=== PATIENT | male | born 1960 | race Caucasian/White ===

== ENCOUNTER 2016-11-03 09:22 | Day surgery (SDC) | payer BC ==
[2016-11-03] VITALS (450 sets, daily range): BP systolic 150–184; BP diastolic 80–127; PULSE 55–72; TEMP 96.7–98.5; O2SAT 93–100
[~2016-11-03] VITALS: Ht 180.3 cm; Wt 109.0 kg
[~2016-11-03 09:22] MED LIST: PRINIVIL10 MG PO
[2016-11-03 10:36] LABS: HEMATOCRIT 38.6 % (42.0-52.0); HEMOGLOBIN 13.3 g/dl (13.5-18.0); MEAN CELL VOLUME 88 fl (80.0-100.0); MEAN CORPUSCULAR HEMOGLOBIN 30 pg (27.0-31.0); MEAN CORPUSCULAR HGB CONC 35 g/dl (33.0-37.0); MEAN PLATELET VOLUME 10.4 fl (7.4-10.4); PLATELET COUNT 224 K/mm3 (130-400); REDCELL DISTRIBUTION WIDTH-CV 13.2 % (11.5-14.5); WHITE BLOOD COUNT 7.6 K/mm3 (4.8-10.8)
[2016-11-03] MEDS ORDERED: LOPRESSOR 550 MG/TAB PO (10:36)
[2016-11-03 10:37] LABS: PROTHROMBIN TIME 11.5 SECONDS (9.7-12.8)
[2016-11-03] MEDS ORDERED: LIPITOR20 MG PO (10:37)
[2016-11-03] MEDS ORDERED: ASPIRIN E.C. 8181 MG PO (10:37)
[2016-11-03] MEDS ORDERED: GLUCOPHAGE1000 MG PO (10:37)
[2016-11-03] MEDS ORDERED: TYLENOL 500MG500 MG PO (10:40)
[2016-11-03] MEDS ORDERED: [UNRECOGNIZED DRUG - REMARK] PO (10:46)
[2016-11-03 10:47] LABS: CALCIUM 8.6 mg/dL (8.4-10.2); CREATININE, serum 0.62 mg/dL (0.66-1.25); POTASSIUM 3.9 mmol/L (3.4-5.0)
[2016-11-04] VITALS (28 sets, daily range): BP systolic 130–148; BP diastolic 56–85; PULSE 68–73; TEMP 98–98.7; O2SAT 96–100
[2016-11-04 06:45] LABS: BASO % 0.2 % (0.0-2.0); EOS % 0.2 % (0-4.0); GRAN # 10.3 (1.4-6.5); GRAN % 83.2 % (42.2-75.2); HEMATOCRIT 37.6 % (42.0-52.0); LYMPH # 1.5 (1.2-3.4); LYMPH % 12.2 % (20.0-51.0); MEAN CELL VOLUME 89 fl (80.0-100.0); MEAN CORPUSCULAR HEMOGLOBIN 31 pg (27.0-31.0); MEAN CORPUSCULAR HGB CONC 35 g/dl (33.0-37.0); MEAN PLATELET VOLUME 10.8 fl (7.4-10.4); MONO # 0.5 (0.1-0.6); MONO % 3.8 % (1.7-9.3); PLATELET COUNT 158 K/mm3 (130-400); RED BLOOD COUNT 4.25 M/mm3 (4.20-5.60); REDCELL DISTRIBUTION WIDTH-CV 13.4 % (11.5-14.5); WHITE BLOOD COUNT 12.3 K/mm3 (4.8-10.8)
[2016-11-04 07:00] LABS: CALCIUM 8.4 mg/dL (8.4-10.2); CREATININE, serum 0.55 mg/dL (0.66-1.25); POTASSIUM 3.7 mmol/L (3.4-5.0)
[2016-11-04] MEDS ORDERED: BRILINTA90 MG PO (10:15)
[2016-11-04] MEDS ORDERED: NITROSTAT0.4 MG/TAB SL (10:28)
== END 2016-11-04 11:20 | disposition home or self-care (01) ==
LOC: COL.CAR 09:22 → ICU 13:15 → COL.CAR 11-04 11:20
PROVIDERS: Internal Medicine Cardiovascular Disease
DX: I25.10 Atherosclerotic heart disease of native coronary artery without angina pectoris (principal); I42.9 Cardiomyopathy, unspecified; Z95.1 Presence of aortocoronary bypass graft; I25.2 Old myocardial infarction; I10 Essential (primary) hypertension; E78.2 Mixed hyperlipidemia; E11.9 Type 2 diabetes mellitus without complications; Z87.891 Personal history of nicotine dependence
CPT/HCPCS: OP; C1725; C1760; C1769; C1874; C1887; C1894; C9600; J0360; J0583; J2250; J2270; J2405; J3010; Q9967

== ENCOUNTER 2016-11-10 10:01 | Emergency (ER) | payer BC ==
[~2016-11-10] VITALS: Ht 180.3 cm; Wt 109.1 kg
[~2016-11-10 10:01] MED LIST changes: +ASPIRIN E.C. 8181 MG PO; +BRILINTA90 MG PO; +GLUCOPHAGE1000 MG PO; +LIPITOR20 MG PO; +LOPRESSOR 550 MG/TAB PO; +NITROSTAT0.4 MG/TAB SL; +TYLENOL 500MG500 MG PO; +[UNRECOGNIZED DRUG - REMARK] PO
[2016-11-10 10:03] VITALS: TEMP 98
[2016-11-10 10:56] LABS: BASO # 0.1 (0.0-0.2); BASO % 0.6 % (0.0-2.0); EOS # 0.1 (0.0-0.7); EOS % 1.5 % (0-4.0); GRAN % 70.7 % (42.2-75.2); HEMOGLOBIN 13.2 g/dl (13.5-18.0); LYMPH # 1.7 (1.2-3.4); LYMPH % 19.8 % (20.0-51.0); MEAN CELL VOLUME 88 fl (80.0-100.0); MEAN CORPUSCULAR HEMOGLOBIN 31 pg (27.0-31.0); MEAN CORPUSCULAR HGB CONC 35 g/dl (33.0-37.0); MEAN PLATELET VOLUME 10.3 fl (7.4-10.4); MONO # 0.6 (0.1-0.6); PLATELET COUNT 247 K/mm3 (130-400); RED BLOOD COUNT 4.31 M/mm3 (4.20-5.60); REDCELL DISTRIBUTION WIDTH-CV 13.2 % (11.5-14.5); WHITE BLOOD COUNT 8.5 K/mm3 (4.8-10.8)
[2016-11-10 11:03] LABS: INR 1.1 (0.8-3.0); PROTHROMBIN TIME 11.9 SECONDS (9.7-12.8)
[2016-11-10 11:05] LABS: PARTIAL THROMBOPLASTIN TIME 32.7 SECONDS (26.0-37.0)
[2016-11-10 11:17] LABS: ALANINE AMINOTRANSFERASE 40 U/L (21-72); ALBUMIN 4.1 gm/dL (3.5-5.0); ALKALINE PHOSPHATASE 47 U/L (50-136); ANION GAP 14 mmol/L (7-16); BLOOD UREA NITROGEN 13 mg/dL (9-20); C-REACTIVE PROTEIN 5.1 mg/dL (0.0-0.9); CALCIUM 9.1 mg/dL (8.4-10.2); CARBON DIOXIDE 22 mmol/L (22-30); CHLORIDE 102 mmol/L (98-107); CREATININE, serum 0.66 mg/dL (0.66-1.25); GLUCOSE 174 mg/dL (74-106); LIPASE 45 U/L (23-300); POTASSIUM 3.8 mmol/L (3.4-5.0); SODIUM 137 mmol/L (137-145)
[2016-11-10 12:12] LABS: TROPONIN-I < 0.012 ng/mL (0.000-0.034)
[2016-11-10] MEDS ORDERED: FIORICET 325 MG1 TA1 PO (12:52)
[2016-11-10] MEDS ORDERED: DOXYCYCLINE 10100 MG PO (12:52)
[2016-11-10 13:20] VITALS: BP 163/94; PULSE 68
== END 2016-11-10 13:21 | disposition home or self-care (01) ==
LOC: COL.ER 10:01
PROVIDERS: Emergency Medicine
DX: R51 Headache (principal); I10 Essential (primary) hypertension; I25.10 Atherosclerotic heart disease of native coronary artery without angina pectoris; I25.2 Old myocardial infarction; E78.00 Pure hypercholesterolemia, unspecified; E11.9 Type 2 diabetes mellitus without complications; Z95.5 Presence of coronary angioplasty implant and graft; Z95.9 Presence of cardiac and vascular implant and graft, unspecified; Z79.84 Long term (current) use of oral hypoglycemic drugs; Z79.82 Long term (current) use of aspirin
CPT/HCPCS: J7030